=== PATIENT | male | born 1940 | race Two or more races ===

== ENCOUNTER 2023-09-22 20:16 | Inpatient (IN) | payer OTHER, SELFPAY ==
[2023-09-22] VITALS (8 sets, daily range): BP systolic 120–176; BP diastolic 59–84; BMI 13.9
[2023-09-22 16:51] LABS: % Basophils 0.1 % (0-2); % Eosinophils 0.1 % (0-6); % Immature Granulocytes 0.3 % (0-0.5); % Lymphocytes 24.6 % (20.5-51.1); % Monocytes 9.8 % (1.7-9.3); % Neutrophils 65.1 % (42.2-75.2); Absolute Lymphocytes 1.7 10^3/uL (1.2-3.4); Absolute Monocytes 0.7 10^3/uL (0.1-0.6); Absolute Neutrophils 4.5 10^3/uL (1.4-6.5); Hematocrit 34.8 % (39.0-52.0); Hemoglobin 12.9 g/dL (13.0-18.0); Mean Corp Hgb Conc. 37.1 g/dL (33.0-37.0); Mean Corpuscular Hgb 29.8 pg (27.0-31.0); Mean Corpuscular Volume 80.4 fL (80.0-94.0); Mean Platelet Volume 11.1 fL (7.4-10.4); Nucleated Red Blood Cells % 0 % (-); Platelet Count 190 10^3/uL (130-400); Red Blood Cell Count 4.33 10^6/uL (4.70-6.10); Red Cell Dist. Width 13.4 % (11.5-14.5); White Blood Cell Count 6.9 10^3/uL (4.8-10.8)
[2023-09-22 16:58] LABS: ALT (SGPT) 10 U/L (0-50); AST (SGOT) 18 U/L (17-59); Albumin 4.2 g/dl (3.5-5.0); Alkaline Phosphatase 83 U/L (38-126); Blood Urea Nitrogen 16 mg/dl (9-20); Calcium 9.7 mg/dl (8.4-10.2); Carbon Dioxide 25 mmol/L (22-30); Chloride 101 mmol/L (98-107); Estimated Creatinine Clearance 57 ml/min; Glucose 131 mg/dl (70-99); Potassium 3.7 mmol/L (3.5-5.1); Sodium 137 mmol/L (135-145); Total Bilirubin 1.1 mg/dl (0.2-1.3); Total Protein 7.4 g/dl (6.3-8.2); eGFR > 60.00
--- NOTE | 2023-09-22 17:13 | ED.GENMED ---
History of Present Illness
<Octavia Bennett PA-C - Last Filed: 09/22/23 19:36>
General
Chief Complaint: Chest Pain
Source: patient
Exam Limitations: none
Time Seen by Provider: 09/22/23 16:52
Nursing documentation reviewed up to this point in time: agreed with
Travel History
Have you had any contact with someone who has COVID-19?: No
Do you have any symptoms of coronavirus? Fever > 100 degrees, chills, cough, shortness of breath, sore throat, loss of taste or smell, muscle aches, or headache?: No
History of Present Illness
History of Present Illness:
83-year-old male past medical history of dementia presenting emergency department today with concerns of chest pain for the past month. Son present in room who is translating for patient. Son reports that patient has been complaining of chest pain
substernally that is stabbing in nature and has had it for the past month that is been progressively getting worse. Son reports that his brother is a doctor and he checked patient's vitals last night and noticed that her heart rate was in the 30s
and so he advised reporting to the emergency department. Patient is had no shortness of breath with this, but since he has been getting a lot weaker and has no appetite. Patient was seen at [facility] months ago for similar pain and
was told at the time that he had a low heart rate would likely need a pacemaker, but he never got follow-up on this. Son denies any other medical history.
Review of Systems
<Octavia Bennett PA-C - Last Filed: 09/22/23 19:36>
Review of Systems
All Other Systems: ROS reviewed and negative except as documented in HPI and ROS
Phy Exam
<Octavia Bennett PA-C - Last Filed: 09/22/23 19:36>
Physical Exam
Physical Exam:
General: Patient appears cachectic, chronically ill-appearing, but in no acute distress
Skin: Warm and dry, no rashes or lesions
Head: Normocephalic, atraumatic
Eyes: Sclera non-icteric. EOMs intact. PERRLA.
Cardiac: Bradycardia, no murmurs on exam. No tenderness to palpation external chest wall. EKG revealed 2:1 AV conduction block type II.
Peripheral Vascular: No lower extremity swelling or edema, 2+ results pedis pulse bilaterally, 2+ radial pulses bilateral
Pulm: Normal respiratory effort, no wheezes, rales, rhonchi heard on exam
Abdomen: No abdominal tenderness
Musculoskeletal: No tenderness palpation external chest wall.
Neuro: CN II-XII intact, no focal neurologic deficits.
Psychiatric: Appropriate mood and affect.
Scores
<Octavia Bennett PA-C - Last Filed: 09/22/23 19:36>
Heart Score for Chest Pain Patients
STEMI patient?: No
History: Slightly or Non-Suspicious
ECG: Nonspecific Repolarization
Age: >/= 65 years
Risk Factors: 1 or 2 Risk Factors
Troponin: >1 - <3 x Normal Limit
Heart Score for Chest Pain Patients: 5
Heart Score Risk: 20.3% MACE over next 6 weeks
<Leonard Rebollar DO - Last Filed: 09/22/23 23:21>
Heart Score for Chest Pain Patients
Heart Score for Chest Pain Patients: 5
Heart Score Risk: 20.3% MACE over next 6 weeks
Course
<FAWN Valverde Last Filed: 09/22/23 19:36>
Orders/Labs/Results
Orders:
Orders
09/22/23 16:07
EKG [Electrocardiogram (*1)] Urgent
Reason for Study: Chest Pain
EKG- Treatment ONCE
09/22/23 16:35
CBC/With Diff [Complete Blood Count/With Diff] Urgent
CMP [Comprehensive Metabolic Panel] Urgent
Magnesium Urgent
Comment: ADD ON
Troponin I Urgent
09/22/23 17:08
Add On- LAB Urgent
Tests Added?: magnesium and troponin
09/22/23 19:32
Admit/Transfer Patient As Directed
Co-Sign Provider:
Level of Care: Inpatient admission
Assign to:: IVU
Physician / Group: Alpesh
Diagnosis: Symptomatic Bradycardia / Heart Block
Reason for Hospitalization: Symptomatic Bradycardia / Heart Block
Expected length of stay greater than two midnights?: Yes
ELOS- Estimated Length of Stay in days: 3
I certify the patient meets the requirements for IP care: Yes
09/22/23 19:34
Code Status As Directed
Resuscitation Status: Full Code
09/22/23 19:43
Urinalysis Reflex To Culture Urgent
09/22/23 20:46
Troponin I Q6H
Acetaminophen [Tylenol] 650 mg PO Q4HPRN PRN
Docusate Sodium [Colace] 100 mg PO BID
Heparin 5,000 units SC Q12
Lactated Ringers [Lr] 1,000 ml IV 60 mls/hr
Morphine Sulfate 2 mg IV Q4HPRN PRN
Nitroglycerin Sublingual [Nitrostat (Sublingual)] 0.4 mg SL [id number] PRN
Polyethylene Glycol Powder [Miralax] 17 grams PO DAILYPRN PRN
09/22/23 20:46
CARDIOLOGY CONSULT Routine
Consulting Provider: Wyatt Truong
Was physician already notified: Yes
Reason for consult: Bradycardia, Heart Block
NUTRITIONAL SUPPORT TEAM Routine
B12 [Vitamin B12] Routine
TSH Reflex To Free T4 Routine
Activity As Directed
Activity Level: Bedrest
Bladder Scan As Directed
Follow Bladder Retention/Intermittent Cath Algorithm?: Yes
PRN if no void in __ hours: 6
Frequency: Per Retention Algorithm
If Bladder Scan Result >: 400
then:: Straight cath
EKG with chest pain [ECG as needed] As Directed
ECG as needed for:: Chest Pain
I/O [Intake/ Output] As Directed
Frequency: Per unit guidelines
Nursing to Place Non Medication Order As Directed
Physician Order: External pacer pads on patient please.
Pneumatic Compression Sleeves As Directed
Type: Knee high
Straight Cath As Directed
Frequency: Per Retention Algorithm
Additional Instructions: straight cath as needed per acute urinary retention algorithm for 24 hrs
Additional Instructions: for bladder scan greater than 400 mL
Vital Signs As Directed
Frequency: Per unit guidelines
Weight As Directed
Frequency: Daily
Oxygen Therapy [O2 Therapy] [RESP] Routine
Titrate/Wean O2 to maintain O2 sat greater than (%): 94
Ot Eval And Treat Routine
PT Consult [Pt Eval And Treat] Routine
Activity Level: Ambulate
With Assistance
DX Deep Vein Thrombosis Video Routine
09/22/23 22:00
Sennosides [Senokot] 17.2 mg PO HS
09/23/23 02:46
Troponin I Q6H
09/23/23 Breakfast
NPO
Allow oral meds: Yes
Allow clear liquids: Sips of Clears
Basic Metabolic Panel IN AM
Cardiovascular Evaluation IN AM
US Abdomen Complete/Upper IN AM
Comment:
Reason For Exam: LUQ Pain
09/23/23 08:00
Aspirin Chewable [Low Strength Aspirin] 81 mg PO DAILY
Famotidine [Pepcid] 20 mg PO DAILY
Tamsulosin [Flomax] 0.4 mg PO DAILY
09/23/23 08:46
Troponin I Q6H
Abnormal Lab Results
09/22/23
16:35
RBC 4.33 L 10^6/uL
(4.70-6.10)
Hgb 12.9 L g/dL
(13.0-18.0)
Hct 34.8 L %
(39.0-52.0)
MCHC 37.1 H g/dL
(33.0-37.0)
MPV 11.1 H fL
(7.4-10.4)
Absolute Monos (auto) 0.7 H 10^3/uL
(0.1-0.6)
Monocytes % 9.8 H %
(1.7-9.3)
Creatinine 0.6 L mg/dL
(0.7-1.3)
Glucose 131 H mg/dl
(70-99)
Troponin I 0.035 H* ng/ml
09/22/23 16:35
09/22/23 16:35
Vital Signs
Initial and Last Documented VS:
Initial Vital Signs
Temp Pulse Resp BP Pulse Ox
98.7 F 40 16 120/65 96
09/22/23 16:08 09/22/23 16:08 09/22/23 16:08 09/22/23 16:08 09/22/23 16:08
Last Documented Vital Signs
Temp Pulse Resp BP Pulse Ox
97.4 F 38 18 157/65 98
09/22/23 21:01 09/22/23 20:48 09/22/23 21:01 09/22/23 20:00 09/22/23 21:01
<Leonard Rebollar, DO - Last Filed: 09/22/23 23:21>
Orders/Labs/Results
Orders:
Orders
09/22/23 16:07
EKG [Electrocardiogram (*1)] Urgent
Reason for Study: Chest Pain
EKG- Treatment ONCE
09/22/23 16:35
CBC/With Diff [Complete Blood Count/With Diff] Urgent
CMP [Comprehensive Metabolic Panel] Urgent
Magnesium Urgent
Comment: ADD ON
Troponin I Urgent
09/22/23 17:08
Add On- LAB Urgent
Tests Added?: magnesium and troponin
09/22/23 19:32
Admit/Transfer Patient As Directed
Co-Sign Provider:
Level of Care: Inpatient admission
Assign to:: IVU
Physician / Group: Alpesh
Diagnosis: Symptomatic Bradycardia / Heart Block
Reason for Hospitalization: Symptomatic Bradycardia / Heart Block
Expected length of stay greater than two midnights?: Yes
ELOS- Estimated Length of Stay in days: 3
I certify the patient meets the requirements for IP care: Yes
09/22/23 19:34
Code Status As Directed
Resuscitation Status: Full Code
09/22/23 19:43
Urinalysis Reflex To Culture Urgent
09/22/23 20:46
Troponin I Q6H
Acetaminophen [Tylenol] 650 mg PO Q4HPRN PRN
Docusate Sodium [Colace] 100 mg PO BID
Heparin 5,000 units SC Q12
Lactated Ringers [Lr] 1,000 ml IV 60 mls/hr
Morphine Sulfate 2 mg IV Q4HPRN PRN
Nitroglycerin Sublingual [Nitrostat (Sublingual)] 0.4 mg SL [id number] PRN
Polyethylene Glycol Powder [Miralax] 17 grams PO DAILYPRN PRN
09/22/23 20:46
CARDIOLOGY CONSULT Routine
Consulting Provider: Wyatt Truong
Was physician already notified: Yes
Reason for consult: Bradycardia, Heart Block
NUTRITIONAL SUPPORT TEAM Routine
B12 [Vitamin B12] Routine
TSH Reflex To Free T4 Routine
Activity As Directed
Activity Level: Bedrest
Bladder Scan As Directed
Follow Bladder Retention/Intermittent Cath Algorithm?: Yes
PRN if no void in __ hours: 6
Frequency: Per Retention Algorithm
If Bladder Scan Result >: 400
then:: Straight cath
EKG with chest pain [ECG as needed] As Directed
ECG as needed for:: Chest Pain
I/O [Intake/ Output] As Directed
Frequency: Per unit guidelines
Nursing to Place Non Medication Order As Directed
Physician Order: External pacer pads on patient please.
Pneumatic Compression Sleeves As Directed
Type: Knee high
Straight Cath As Directed
Frequency: Per Retention Algorithm
Additional Instructions: straight cath as needed per acute urinary retention algorithm for 24 hrs
Additional Instructions: for bladder scan greater than 400 mL
Vital Signs As Directed
Frequency: Per unit guidelines
Weight As Directed
Frequency: Daily
Oxygen Therapy [O2 Therapy] [RESP] Routine
Titrate/Wean O2 to maintain O2 sat greater than (%): 94
Ot Eval And Treat Routine
PT Consult [Pt Eval And Treat] Routine
Activity Level: Ambulate
With Assistance
DX Deep Vein Thrombosis Video Routine
09/22/23 22:00
Sennosides [Senokot] 17.2 mg PO HS
09/23/23 02:46
Troponin I Q6H
09/23/23 Breakfast
NPO
Allow oral meds: Yes
Allow clear liquids: Sips of Clears
Basic Metabolic Panel IN AM
Cardiovascular Evaluation IN AM
US Abdomen Complete/Upper IN AM
Comment:
Reason For Exam: LUQ Pain
09/23/23 08:00
Aspirin Chewable [Low Strength Aspirin] 81 mg PO DAILY
Famotidine [Pepcid] 20 mg PO DAILY
Tamsulosin [Flomax] 0.4 mg PO DAILY
09/23/23 08:46
Troponin I Q6H
Abnormal Lab Results
09/22/23
16:35
RBC 4.33 L 10^6/uL
(4.70-6.10)
Hgb 12.9 L g/dL
(13.0-18.0)
Hct 34.8 L %
(39.0-52.0)
MCHC 37.1 H g/dL
(33.0-37.0)
MPV 11.1 H fL
(7.4-10.4)
Absolute Monos (auto) 0.7 H 10^3/uL
(0.1-0.6)
Monocytes % 9.8 H %
(1.7-9.3)
Creatinine 0.6 L mg/dL
(0.7-1.3)
Glucose 131 H mg/dl
(70-99)
Troponin I 0.035 H* ng/ml
09/22/23 16:35
09/22/23 16:35
Vital Signs
Initial and Last Documented VS:
Initial Vital Signs
Temp Pulse Resp BP Pulse Ox
98.7 F 40 16 120/65 96
09/22/23 16:08 09/22/23 16:08 09/22/23 16:08 09/22/23 16:08 09/22/23 16:08
Last Documented Vital Signs
Temp Pulse Resp BP Pulse Ox
97.4 F 38 18 157/65 98
09/22/23 21:01 09/22/23 20:48 09/22/23 21:01 09/22/23 20:00 09/22/23 21:01
<Octavia Bennett PA-C - Last Filed: 09/22/23 19:36>
MDM/Problems Addressed
Differential Diagnosis Includes:
Sinus bradycardia, heart block, diagnosis, ACS, coronary artery disease
MDM/Problems Addressed:
Bradycardia
Chronic conditions affecting care:
Dementia
<Octavia Bennett PA-C - Last Filed: 09/22/23 19:36>
*Pulse Oximetry
Patient hypoxic: no
*EKG
Interpreted by ED Provider?: Yes
EKG Intrepretation Date: 09/22/23
Interpretation: abnormal
Comparison EKG: no comparison EKG present
Heart Rate: 30
Rate: bradycardiac
[place]: normal axis
Interval: second degree mobitz II
Ischemia: no ischemia
Data Reviewed
Review of Other/Old Records Reveals: Records (No previous records at [facility] to review)
Source: patient and records
<Leonard Rebollar DO - Last Filed: 09/22/23 23:21>
*Critical Care Note
Total Time (30-74mins, 75-104mins- exclusive of procedures): 30
comment:
Critical care statement: A total of 30 minutes of critical care time was provided for this patient. This includes management of unstable vital signs, evaluation of the patient at bedside, reviewing the patient's pertinent medical records, discussion
with consultants, review of old EKGs and review of pertinent medical records. This time with separate from time utilized to perform the aforementioned documented procedures
<FAWN Valverde Last Filed: 09/22/23 19:36>
Patient Management
Escalation/DeEscalation of care consider admission/obs:
83-year-old male past medical history of dementia presenting emergency department today with concerns of chest pain for the past month. Son present in room who is translating for patient. Heart rate in the 30s and brought him to the emergency
department. Apparently, patient went this low in the past and was referred for maker placement but patient repeatedly declined. Patient has become weaker and more symptomatic. Cardiology consulted and will admit patient to medicine see in consult
for pacemaker placement potentially with Dr. Taylor. Patient family understanding of plan. Patient's blood pressure remained stable
ED Attending Note
<Octavia Bennett PA-C - Last Filed: 09/22/23 19:36>
-
Portions of this chart may have been created with voice recognition software.� Occasional wrong word or��sound alike� substitutions may have occurred due to the inherent limitations of voice recognition software.
<Lenoard Rebollar DO - Last Filed: 09/22/23 23:21>
ED Attending Note
Patient seen and examined by attending physician: Yes
I performed a history and physical exam of patient and discussed management with resident, I reviewed resident's note and agree with documented findings and plan of care.: Yes
ED Attending Note:
I have reviewed and agree with patient treatment plan by Octavia Bennett. My exam revealed 83-year-old male no acute distress, bradycardia. Thin, cachectic. Dr. Taylor discussed with Dr. Hines, that he would see patient in hospital. Discussed
with Dr. Eugene, who will see patient on consult. Patient admitted to hospitalist. Pacer pads applied. Blood pressure stable.
Discharge Plan
Departure
Patient Disposition: Admit
Date of Disposition: 09/22/23
Time of Disposition: 17:35
Admit to: IVU
Presentation/result/management discussed w/ accepting MD/DO: Hospitalist
Patient with high blood pressure during this ER visit?: No
Condition: Fair
Discharge Problem:
Second degree AV block, Mobitz type II
Interventions
Interventions:
*Risk Screen - Suicide Last Done: 09/22/23 16:54
*General Assessment Last Done: 09/22/23 16:54
*Neglect/Abuse Screening Last Done: 09/22/23 16:54
ED- Fall Risk Assessment Last Done: 09/22/23 20:55
*ED COVID-19 Vaccine History Last Done: 09/22/23 21:02
*Nursing Disposition Last Done: 09/22/23 20:55
ED- Cardiac Assessment Last Done: 09/22/23 16:54
Discharge Date and Time
Discharge Date/Time: 09/22/23 20:55
[2023-09-22 17:15] LABS: Troponin I 0.035 ng/ml
--- NOTE | 2023-09-22 19:39 | HPS.HSE ---
Family Physician
-
Family Physician: Ju Russo
Chief Complaint
-
Weakness
History of Present Illness
Patient is an 83y M with PMH significant for BPH who presents to ED complaining of generalized weakness and fatigue. History obtained primarily from family at bedside serving to provide history and serve as staff interpreter. Patient was reportedly
in his normal state of health about 5 months ago. Over the past 4 months, he has had precipitous decline including confusion, memory loss, weakness, gait dysfunction, dyspnea with exertion, etc.
Patient has been seen by PCP and Cardiology at [facility] and was found to have bradycardia. PPM was recommended and they advised that he follow-up here for that procedure.
This evening, patient complained of some left-sided chest pain and family brought him to the ED for further evaluation.
He is resting comfortably at present and denies any chest pain at this time.
EKG done in the ED shows 2:1 sinus arrhythmia / Mobitz II with no evident ischemic changes.
Medical History
Past Medical History
Past Medical History: Reports Other
Additional Past Medical History:
BPH
Dementia
Past Surgical History: Reports None
Social History
Tobacco: Non-smoker
Alcohol: None
Drug: None
Living: With Family
Family History
Family History: Not pertinent
Allergies / Home Medications
Allergies reflects when Allergies were last updated in [facility].
Home Medications with original date entered in [facility]
Allergy/Medication List:
Allergies
Allergy/AdvReac Type Severity Reaction Status Date / Time
No Known Allergies Allergy Verified 09/22/23 16:06
Home Medications
famotidine 20 mg tablet 20 mg PO BID 09/22/23
oxycodone-acetaminophen 5 mg-325 mg tablet 1 tab PO Q6HPRN PRN moderate pain 09/22/23
tamsulosin 0.4 mg capsule 0.4 mg PO DAILY 09/22/23
Review of Systems
-
History Source: Patient and Family
A 12 point ROS was completed and negative except as noted: Yes
Constitutional: Reports Fatigue; Denies Fever or Chills
Respiratory: Reports Trouble Breathing; Denies Cough
Cardiac: Reports Chest Pain; Denies Diaphoresis, Palpitations or Syncope
Abdomen/GI: Reports Constipated and Anorexia; Denies Abdominal Pain, Nausea, Vomiting or Diarrhea
: Reports Frequency; Denies Dysuria
Musculoskeletal: Denies Joint Pain or Edema
Neurological: Reports Dizzy; Denies Headache
Psych: Reports Dementia; Denies Depression or Anxiety
Physical Exam
Vital Signs
Vital Signs
Temp Pulse Resp BP Pulse Ox
98.7 F 80 19 122/84 96
09/22/23 16:08 09/22/23 16:55 09/22/23 16:55 09/22/23 16:54 09/22/23 16:08
Physical Exam
General: Other (Frail, Cachectic 83y M in no acute distress.)
HEENT: Other (Dry MM. Neck supple.)
Respiratory: Clear; No Wheezes, Rales or Rhonchi
Cardiac: S1/S2 and Bradycardia; No Murmur
GI: Soft, Non Distended, Normal Bowel Sounds and Other (Mild LUQ tenderness appreciated on exam.)
Musculoskeletal: No Clubbing, No Cyanosis and No Edema
Neuro: Awake, Alert and Nonfocal/grossly intact
Psych: No Agitated
Laboratory Results
-
09/22/23 16:35
09/22/23 16:35
Laboratory Results
Total Bilirubin 1.1 mg/dl (0.2-1.3) 09/22/23 16:35
AST 18 U/L (17-59) 09/22/23 16:35
ALT 10 U/L (0-50) 09/22/23 16:35
Alkaline Phosphatase 83 U/L (38-126) 09/22/23 16:35
Troponin I Cancelled 09/22/23 17:15
Impression/Plan
-
A/P: Patient is an 83y M with PMH significant for BPH who presents to ED complaining of chest pain today with recent issues with fatigue, weight loss and general decline.
Symptomatic Bradycardia
Mobitz II AV Block
- Admit for further evaluation and treatment.
- Cardiology evaluation for probable PPM placement.
- Monitor with pads on overnight for any worsened bradycardia.
Chest Pain
Abnormal Troponin
- Patient did have chest pain this evening, though he is now pain free.
- EKG without evident ischemia - but noted conduction system disease.
- Follow troponin to peak.
- Add daily ASA for now.
- Consider IV heparin, etc if troponin increases or chest pain recurs.
- Cardiology evaluation as noted above.
Senile Dementia
- Fairly precipitous decline over the past 4 months or so per son.
- Reviewed that is unlikely that PPM / heart rate correction will greatly improve his confusion / disorientation.
- Follow for any agitation / delirium during acute hospital stay.
- B12, TFTs, etc.
Protein - Calorie Malnutrition
- BMI = 13. Nutrition consult.
- Encourage PO intake.
Constipation
- Check US given report of abdominal discomfort.
- Bowel regimen for constipation.
BPH
- Stable. Continue tamsulosin.
- Bladder scan protocol.
DVT Prophylaxis: Subcut Heparin
Code Status: Full
[2023-09-22] MEDS: COLACE 100 MG PO (22:26)
[2023-09-22] MEDS: SENOKOT 17.1999999999999993 MG PO (22:26)
[2023-09-22] MEDS: HEPARIN 5000 UNITS SC (22:27)
[2023-09-22] MEDS: LR 1000 IV (22:28)
--- NOTE | 2023-09-22 23:07 | PTCARENOTE ---
admitted to [id number] confused at baseline- son translates- pt speaks yoruba- Oriented to self only. HR in the 30s.
[2023-09-23 00:19] LABS: Troponin I 0.044 ng/ml
[2023-09-23 00:37] LABS: TSH Reflex To Free T4 1.42 uIU/ml (0.47-4.68)
[2023-09-23 00:56] LABS: Vitamin B12 338 pg/ml (239-931)
[2023-09-23 05:13] VITALS: BP 139/78
[2023-09-23 05:58] LABS: Blood Urea Nitrogen 15 mg/dl (9-20); Calcium 9.2 mg/dl (8.4-10.2); Carbon Dioxide 28 mmol/L (22-30); Chloride 103 mmol/L (98-107); Estimated Creatinine Clearance 57 ml/min; Glucose 85 mg/dl (70-99); HDL Cholesterol 49 mg/dl; LDL Cholesterol, Calculated 87 mg/dl; Potassium 3.5 mmol/L (3.5-5.1); Sodium 137 mmol/L (135-145); Total Cholesterol 145 mg/dl (50-199); Triglyceride 45 mg/dl (10-149); Very Low Density Lipoprotein 9 mg/dl (0-30); eGFR > 60.00
[2023-09-23 06:14] LABS: Troponin I 0.062 ng/ml
--- NOTE | 2023-09-23 06:24 | PTCARENOTE ---
TT: Alexi- made aware of pt HR- in the 20s- he made this RN aware that [facility] was actually taking this pt- and to change the consulting group- so Jabier was also made aware of pt HR in 28-29 range this morning BP 139/78 SPO2 98%. No new orders at
this time.
[2023-09-23 07:25] VITALS: BP 157/69
[2023-09-23] MEDS: FLOMAX 0.400000000000000022 MG PO (07:45)
[2023-09-23] MEDS: LOW STRENGTH ASPIRIN 81 MG PO (07:45)
[2023-09-23] MEDS: COLACE 100 MG PO (07:45)
[2023-09-23] MEDS: HEPARIN 5000 UNITS SC (07:47)
[2023-09-23 08:03] LABS: Urine Albumin Negative (Neg - Trace); Urine Bilirubin Negative (Negative); Urine Character Clear (Clear); Urine Color Yellow; Urine Glucose Negative (Negative); Urine Ketone Trace (Negative); Urine Leukocyte Negative (Negative); Urine Nitrite Negative (Negative); Urine Occult Blood 1+ (Negative); Urine Urobilinogen Negative (Neg - 1+)
[2023-09-23 08:42] LABS: Urine Squamous Cell 0-2 /LPF (Few)
[2023-09-23 08:43] LABS: Urine White Cell 0-2 /HPF (0-5)
[2023-09-23] MEDS: PEPCID 20 MG PO (09:08)
--- NOTE | 2023-09-23 10:00 | CON.CAR ---
Addendum entered and electronically signed by Doug Taylor MD 09/23/23 17:26:
Spoke with son John and son-in-law Benja who is a hospitalist at [facility] at length regarding their father and [id number]'s condition and taking time to review prior records and treatment course. Much of the history is obtained per
son. 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 He is doing relatively well in the fall 2022 in [place] and then since April perhaps slightly after that he has had
fatigue although was able to ambulate and converse with his and his son. For the last 2 to 3 months the son notes that he is been developing memory issues and some decrease in activity. He tells me that his weight has been stable although "Kirk"Aye's note notes a weight of 112 pounds in April and he is 44 kg on presentation today which is an approximate 20% weight loss over the last 5 months. In discussion with Dr. Griffiths he tells me although I do not have the records that a CAT scan was
obtained at [facility] in July. He was offered a pacemaker in both April and in July and the patient did not pursue.
His son brought him to the emergency department yesterday for chest pain. He vacillates between one-to-one AV conduction and 2-1 AV conduction without change in blood pressure or mentation and I did observe pictures of him in [place] from last fall
to look at his body habitus and compared to current. He does have a cystic lesion on abdominal ultrasound of 2 cm difficult to differentiate a cystic mass around the pancreas with bile duct dilation versus the gallbladder. We are planning a CT
scan of the chest abdomen pelvis to further evaluate this with contrast.
I did discuss with son and son-in-law that I do not believe device implantation would necessarily improve his mental status, functional status, quality of life, or nutritional status. I also discussed that any complication whether that is via a
transfemoral leadless or transvenous subclavian endocardial pacemaker would potentially be catastrophic and I quoted a 3 to 5% chance of significant or serious complication from any device implant including device erosion, tamponade, pneumothorax,
vascular injury requiring surgery, sternotomy with significant myocardial perforation or . I also communicated my feeling that I am not convinced the benefit to the patient outweighs the potential risk and I would recommend observation only as
the preferred option.
The son-in-law who is a physician seemed to agree with my recommendation over the phone and the patient's son John after our discussion we will discuss with his family next steps.
I presented options of observation only, leadless pacemaker, transvenous endocardial pacemaker via the left deltopectoral groove as options.
I also had separate discussions with Dr. Griffiths informing him of our discussions and getting his input into care.
Examination:
Cachectic
He appears alert
He is not cooperative with a neurologic exam
He has palpable subclavian arterial pulses and femoral arterial pulses.
He has a paucity of soft tissue around each femoral access site and each deltopectoral groove.
Telemetry reviewed demonstrating intermittent one-to-one AV conduction and 2-1 AV conduction.
He is normotensive and at times hypertensive.
Cor is regular without murmur
His abdominal ultrasound is reviewed
Abdominal exam demonstrates cachexia and positive bowel sounds
His lungs are clear to auscultation
He has no extremity edema
Assessment:
Presentation with CP
Elevated troponin
FTT/cachexia/weight loss
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
Anemia
Dementia
BPH
HTN
ECHO 09/23/23: pending
Plan:
-Patient presents with complaints of chest pain and for pacemaker placement.
-complex case
-he has had evidence of 2:1 av block since at least 04/22/2023 by review of cardiology records. he has not had presyncope or syncope
-significant concern for FTT at home given poor nutrition/po intake and unintentional weight loss (if accurate down at least 20 pounds from 04/2023). progressive dementia, ? underlying malignancy. d/w hospitalist 09/22. needs work up for this prior to
considering for PPM candidacy. given frailty, would be elevated risk for procedures, with concern for complications (bleeding, PTX). micra would be a consideration although I did discuss if he has any vascular injury from the [address] [place] sheath that
the complication could be unrecoverable. per son, he is felt to be functional around their home at his baseline. he knows his family members, however would not know where he is presently or the date according to son.
-nutrition consult
-Agree with chest abdomen pelvis CT scan with contrast to evaluate the cystic lesion near the pancreas on abdominal ultrasound
-for echo
-no present chest discomfort, patient lethargic and resting comfortably. trend trops to peak. continue asa. no BB with av block
-Goal of care discussions ongoing. I will check back in with the family to discuss further after they converse as a family and ultimately will respect their wishes in terms of future options. He can switch to clears 4 hours prior to potential
procedure on which would be in the early afternoon. I am hoping the family would pursue observation only and we can workup his medical issues and work towards their goals of care
-d/w nursing
Original Note:
Consultation
Consultation Request
Date/Time Consultation Performed: 09/23/23
Requesting Provider: Dr. Betts
Performing Provider: Chelsi Lin PA-C for Dr. Taylor
Reason for Consultation: heart block
Medical History
-
Chief Complaint: CP
History of Present Illness:
Patient is an 83 yo M with BPH, HTN. Prior to January 2023, he was living half of the year here and half of the year in [place]. History obtained from son at bedside due to language barrier, dementia in patient, and patient lethargy. In January
2022, [place] the [place] and plan was to remain here permanently with family. He was seen by Dr. Griffiths of [facility] 04/2023 due to 2:1 heart block with HRs in 30s. He had recommended patient come to for evaluation, however patient never came. He was
then admitted to [facility] 06/2023 for abd issues and was again recommended pacemaker however was told to be evaluated by [facility]ology for this and did not follow up. Son reports yesterday patient had complained of chest discomfort. They decided
that he would like the pacemaker and they brought him to for evaluation. He is noted to be 97 pounds today, at office visit with cardiology- location 04/2023 he was 112 pounds. Patient's son states he has not been eating or drinking well and
has had significant weight loss, unintentional. He denies fatigue, lightheadedness, presyncope or syncope as OP. Reports the chest discomfort seems to occur randomly and waxes and wanes. Son states he does walk around their home, typically without
difficulty. Cardiology consulted for evaluation for PPM.
PMH:
2:1 AV block since at least 04/2023
Dementia
BPH
HTN
Past Medical History
Past Medical History: Other (in HPI)
Social History
Tobacco: Non-Smoker
Drug: None
Personal:
Living: With Family
Allergies / Home Medications
Allergy/AdvReac Type Severity Reaction Status Date / Time
No Known Allergies Allergy Verified 09/22/23 16:06
�Medication �Instructions �Recorded �Confirmed �Type
famotidine 20 mg tablet 20 mg PO BID Gastrointestinal Issue 09/22/23 09/22/23 History
oxycodone-acetaminophen 5 mg-325 1 tab PO Q6HPRN PRN moderate pain 09/22/23 09/22/23 History
mg tablet
tamsulosin 0.4 mg capsule 0.4 mg PO DAILY Urinary Issue 09/22/23 09/22/23 History
Review of Systems
-
Unable to obtain full review of systems at this time due to: Dementia and Other (patient lethargy)
History Source: Family
All other systems: Negative unless noted
Physical Exam
Vital Signs
Temp Pulse Resp BP Pulse Ox
97.1 F 30 20 157/69 96
09/23/23 07:25 09/23/23 07:30 09/23/23 07:25 09/23/23 07:25 09/23/23 07:25
Lab Results
09/22/23 16:35
09/23/23 05:20
Troponin I 0.062 ng/ml H* D 09/23/23 05:20
Physical Exam
General: No Apparent Distress, Comfortable and Other (cachectic, frail appearing. patient lethargic, slept through interview/exam)
Respiratory: Clear and Non Labored Respirations
Cardiac: S1/S2, Regular Rhythm and Other (bradycardic)
Musculoskeletal: No Clubbing, No Cyanosis and No Edema
Skin: Warm and Dry
Neuro: Other (lethargic)
Impression / Plan
-
Primary Scroll Saw Operator: Dr. Griffiths of [facility]
Assessment:
Presentation with CP
Elevated troponin
FTT/cachexia/weight loss
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
Anemia
Dementia
BPH
HTN
ECHO 09/23/23: pending
Plan:
-Patient presents with complaints of chest pain and for pacemaker placement.
-complex case
-he has had evidence of 2:1 av block since at least 04/22/2023 by review of cardiology records. he has not had presyncope or syncope
-significant concern for FTT at home given poor nutrition/po intake and unintentional weight loss (if accurate down at least 15 pounds from 04/2023). ? progressive dementia, ? underlying malignancy. d/w hospitalist 09/22. needs work up for this prior
to considering for PPM candidacy. given frailty, would be elevated risk for procedures, with concern for complications (bleeding, PTX). micra would be a consideration if deemed to be a candidate. per son, he is felt to be functional around their
home at his baseline. he knows his family members, however would not know where he is presently or the date according to son.
-nutrition consult
-for abd US
-for echo
-no present chest discomfort, patient lethargic and resting comfortably. trend trops to peak. continue asa. no BB with av block. may consider eventual ischemic evaluation pending clinical course
-he is presently a full code, which was confirmed with family at bedside today. Goal of care discussions ongoing
-d/w nursing
Data Reviewed
-
EKG: Tracing Personally Visualized and interpreted
Labs: Labs Reviewed by me
Old Records: Reviewed
--- NOTE | 2023-09-23 11:21 | CM ---
Chart reviewed. Met with the patient's son who was at bedside. Patient is non Spanish speaking who lives with his son and in a 2 [address], [address], ambulates with a rolling walker. Patients son is not interested in VN. He and sister help to
take care of their parents. Plan is for the patient to return home. CM to follow
[2023-09-23 13:31] LABS: Troponin I 0.057 ng/ml
--- NOTE | 2023-09-23 13:43 | W.PN.HOSP.TC ---
Today's Communication/Plan
-
Discussed case with cardiology
Failure to Thrive Needs to be addressed
Will need to discuss with patient's son, cardiology will also discuss with patient and his family
Assessment / Plan
Assessment / Plan
Physical Exam
Physical Exam was not able to performed as patient was not present in his room despite 2 separate attempts to try to see the patient.

Abdominal Ultrasound - as per radiologist's report
IMPRESSION:
1. Dilated cystic lesion in the region of the nereida hepatis, measuring 2 cm in diameter. This may represent a low-lying gallbladder, choledochal cyst, or significant dilation of the extrahepatic common bile duct. Consider contrast-enhanced CT or
MRI/MRCP for further evaluation.
2. Gallbladder was not visualized separate from this cystic lesion.
2. No sonographic abnormalities demonstrated.

A/P:
Patient is an 83y M with PMH significant for BPH who presents to ED complaining of chest pain today with recent issues with fatigue, weight loss and general decline.
Symptomatic Bradycardia
Mobitz II AV Block
- Cardiology evaluation for PPM placement.
- Per cardiology, patient has had evidence of 2:1 av block since at least 04/22/2023 by review of cardiology records. he has not had presyncope or syncope
- Monitor with pads on overnight for any worsened bradycardia.
Concern for FTT at home
-Cardiology mentioned patient's poor nutrition/po intake and unintentional weight loss (if accurate down at least 15 pounds from 04/2023) - progressive dementia vs. underlying malignancy vs. other. d/w hospitalist 09/22
-Patient needs work up for FTT prior to considering for PPM candidacy, and given frailty, would be elevated risk for procedures, with concern for complications (bleeding, PTX).
-Micra would be a consideration if deemed to be a candidate
-Per son, patient is felt to be functional around their home at his baseline. he knows his family members, however would not know where he is presently or the date according to son.
-Will consult GI given findings in the abdominal ultrasound above
Chest Pain
Abnormal Troponin
- Patient did have chest pain prior to presentation, though he is now pain free.
- EKG without evident ischemia - but noted conduction system disease.
- Follow troponin to peak.
- Add daily ASA for now.
- Consider IV heparin, etc if troponin increases or chest pain recurs.
- Echocardiogram
- Cardiology evaluation as noted above.
Senile Dementia
- Fairly precipitous decline over the past 4 months or so per son.
- Reviewed that is unlikely that PPM / heart rate correction will greatly improve his confusion / disorientation.
- Follow for any agitation / delirium during acute hospital stay.
- B12, TFTs, etc.
- B12 in the 300s -- in the lower end -- will start Vitamin B12
- TSH okay
Protein - Calorie Malnutrition
- BMI = 13. Nutrition consult.
- Encourage PO intake.
Constipation
- Check US given report of abdominal discomfort.
- Bowel regimen for constipation.
BPH
- Stable. Continue tamsulosin.
- Bladder scan protocol.
DVT Prophylaxis: Subcut Heparin
Diet: Regular thin single sips meds in pur�e full supervision (as per speech)
Code Status: Full
Anticipated Discharge: > 48 hours
Subjective/Interval History
-
Date of Service: September 23, 2023
Patient was not present in his room after 2 separate attempts to see him in his room -- nurse/batch unit treater mentioned that patient was downstairs for ultrasound.
Objective Data
-
Labs:
Laboratory Results
09/23/23
05:20
Sodium 137
Potassium 3.5
Chloride 103
Carbon Dioxide 28
BUN 15
Creatinine 0.5 L
Glucose 85
Calcium 9.2
Vital Signs:
Vital Signs
Temp Pulse Resp BP Pulse Ox
97.1 F 30 20 157/69 96
09/23/23 07:25 09/23/23 07:30 09/23/23 07:25 09/23/23 07:25 09/23/23 07:25
I&O
09/22/23 09/23/23 09/24/23
06:59 06:59 06:59
Output Total 150 / 150
Balance -150 / -150
--- NOTE | 2023-09-23 14:10 | PTOTSP ---
Dysphagia Evaluation
Patient presents with signs concerning for mild oral/pharyngeal dysphagia suspected to be due to dementia and FTT. He currently has no known signs of pulmonary complications from dysphagia (i.e., afebrile, on room air, WBC WNL, lungs clear for
physician this date) but poor appetite and weight loss (15 pounds since 04/2023) noted. RD consult recommended.
Recommend:
1. Regular, Thin Liquids
2. Medications - whole in puree
3. Strategies: supervision with PO intake, assistance to use strategies, small SINGLE sips/bites, slow rate
4. Dysphagia therapy at the acute care level for patient/family education and to determine if/when further objective swallowing assessment is warranted.
[2023-09-23 14:45] VITALS: BP 162/76
[2023-09-23] MEDS: CYANOCOBALAMIN 1000 MCG IM (16:43)
[2023-09-23] MEDS: KLOR-CON 20 MEQ PO (16:50)
--- NOTE | 2023-09-23 17:17 | PTCARENOTE ---
Pt denies any pain, sob, dizziness or lightheadedness. Remains in a 2:1 AV block, rate in the 20's to 40's. OOB with assist and a single point cane. Gait slightly unsteady. Pt's son and at the bedside.
--- NOTE | 2023-09-23 18:48 | PTCARENOTE ---
Pt's son asked to have his father discharged to home tonight. Dr. Gaona notified. Pt's son signed his father out AMA. Pt asymptomatic with heart rate in the 30's, Mobitz II. Denies any pain or discomfort. Room air sat 98%.
== END 2023-09-23 19:06 | disposition left against medical advice (07) | DRG 309 ==
LOC: IVU 20:16
PROVIDERS: Student in an Organized Health Care Education/Training Program; ADMITTING PHYSICIAN Hospitalist; ATTENDING PHYSICIAN Hospitalist; CONSULT PHYSICIAN Internal Medicine Cardiovascular Disease; EMERGENCY PHYSICIAN Emergency Medicine; FAMILY PHYSICIAN Internal Medicine; OTHER PHYSICIAN Internal Medicine Cardiovascular Disease
PROC: B24BZZZ Ultrasonography of Heart with Aorta (ICD-10-PCS; 2023-09-23)
DX: I44.1 Atrioventricular block, second degree (principal); E46 Unspecified protein-calorie malnutrition; Z68.1 Body mass index [BMI] 19.9 or less, adult; R64 Cachexia; F03.90 Unspecified dementia, unspecified severity, without behavioral disturbance, psychotic disturbance, mood disturbance, and anxiety; D64.9 Anemia, unspecified; I10 Essential (primary) hypertension; R62.7 Adult failure to thrive; R79.89 Other specified abnormal findings of blood chemistry; N40.0 Benign prostatic hyperplasia without lower urinary tract symptoms; K59.00 Constipation, unspecified; R10.12 Left upper quadrant pain; R07.89 Other chest pain; R00.1 Bradycardia, unspecified; Z53.29 Procedure and treatment not carried out because of patient's decision for other reasons
CPT/HCPCS: 76700; 80048; 80053; 80061; 81003; 81015; 82607; 83735; 84443; 84484; 85025; 92610; 93005; 93306; 99291